=== PATIENT | male | born 1965 | race Hispanic/Latino ===

== ENCOUNTER 2023-07-17 19:12 | Emergency (ER) | payer BC ==
[~2023-07-17] VITALS: Ht 177.8 cm; Wt 90.7 kg
[2023-07-17 21:22] VITALS: O2SAT 100
== END 2023-07-17 21:24 | disposition home or self-care (01) ==
LOC: MERGE 20:01 → ER 20:01
DX: S16.1XXA Strain of muscle, fascia and tendon at neck level, initial encounter (principal); M47.812 Spondylosis without myelopathy or radiculopathy, cervical region; M25.512 Pain in left shoulder; M25.511 Pain in right shoulder
CPT/HCPCS: 72125; 93005; 99283